=== PATIENT | female | born 1935 | race Caucasian/White ===

== ENCOUNTER 2016-08-20 11:41 | Outpatient (CLI) | payer MEDICARE, MEDICAID | END 2016-08-20 11:42 | disposition home or self-care (01) | DX: E05.90 Thyrotoxicosis, unspecified without thyrotoxic crisis or storm (principal); I10 Essential (primary) hypertension ==

== ENCOUNTER 2016-09-10 15:00 | Outpatient (CLI) | payer MEDICARE, MEDICAID | END 2016-09-10 15:01 | disposition home or self-care (01) | DX: L72.3 Sebaceous cyst (principal) ==

== ENCOUNTER 2017-02-17 11:20 | Outpatient (CLI) | payer MEDICARE, MEDICAID ==
--- NOTE | 2017-02-17 19:20 | XRAY Report ---
THREE VIEW BILATERAL KNEES: 02/17/2017 CLINICAL INDICATION: Pain. AP, lateral, sunrise views of the bilateral knees were obtained. RIGHT: There is mild osteoarthritis, with chondrocalcinosis. There is no evidence of fracture or di slocation. No effusion is seen. LEFT: There is a left total knee replacement in place. There is no evidence of acute fracture or eastman rdware complication. A moderate effusion is present. IMPRESSION: MILD RIGHT KNEE OSTEOARTHRITIS. LEFT KNEE REPLACEMENT, WITH A MODERATE EFFUSION. JOB #: [id number] EXT JOB #:[id number]
== END 2017-02-17 11:21 | disposition home or self-care (01) ==
LOC: DI.S 11:20
PROVIDERS: ATTEND Physician Assistant Medical
DX: M17.11 Unilateral primary osteoarthritis, right knee (principal); M25.462 Effusion, left knee; Z96.652 Presence of left artificial knee joint

== ENCOUNTER 2017-10-20 15:06 | Outpatient (CLI) | payer MEDICARE, MEDICAID ==
[2017-10-20 18:43] LABS: HB2 TOTAL 16.8 g/dL; HEMOGLOBIN A1C 0.68 g/dL; HEMOGLOBIN A1C % 5.9 % (4.6-6.2)
== END 2017-10-20 15:07 | disposition home or self-care (01) ==
LOC: LAB.F 15:06
PROVIDERS: ATTEND Physician Assistant Medical
DX: R73.01 Impaired fasting glucose (principal)
CPT/HCPCS: 36415; 83036

== ENCOUNTER 2017-10-22 10:25 | Outpatient (CLI) | payer MEDICARE, MEDICAID ==
[2017-10-22 17:30] LABS: BASOPHILS # (AUTO) 0.1 10^3/uL (0.0-0.1); BASOPHILS % (AUTO) 0.8 %; EOSINOPHILS # (AUTO) 0.1 10^3/uL (0.0-0.7); EOSINOPHILS % (AUTO) 1.4 %; HGB - HEMOGLOBIN 15.5 g/dL (12.0-16.0); LYMPHOCYTES % (AUTO) 15.8 %; MEAN CORPUSCULAR HEMOGLOBIN 28.2 pg (27.0-31.0); MEAN CORPUSCULAR HGB CONC 32.3 g/dL (32.0-36.0); MEAN CORPUSCULAR VOLUME 87.3 fL (81.0-99.0); MEAN PLATELET VOLUME 9.7 fL (7.9-10.8); MONOCYTES # (AUTO) 0.5 10^3/uL (0.0-1.0); MONOCYTES % (AUTO) 7.6 %; NEUTROPHILS # (AUTO) 4.7 10^3/uL (1.5-6.6); NEUTROPHILS % (AUTO) 74.4 %; PLT - PLATELET COUNT 165 10^3/uL (130-450); RED BLOOD COUNT 5.49 10^6/uL (4.20-5.40); RED CELL DISTRIBUTION WIDTH 13.7 % (12.0-15.0); WHITE BLOOD COUNT 6.3 x10^3/uL (4.8-10.8)
[2017-10-22 17:48] LABS: ALBUMIN 4.3 g/dL (3.2-5.5); ALBUMIN/GLOBULIN RATIO 1.8 (1.0-2.2); ALKALINE PHOSPHATASE 101 IU/L (42-121); ALT ALANINE AMINOTRANSFERASE 16 IU/L (10-60); AST ASPARTATE AMINOTRANSFERASE 22 IU/L (10-42); BILIRUBIN,TOTAL 1.7 mg/dL (0.2-1.0); BUN - BLOOD UREA NITROGEN 13 mg/dL (6-20); CARBON DIOXIDE - CO2 27 mmol/L (21-32); CHLORIDE 105 mmol/L (101-111); CREATININE 0.7 mg/dL (0.4-1.0); GFR - MDRD 81 (>89); GLUCOSE 123 mg/dL (70-100); SODIUM 141 mmol/L (135-145); TOTAL PROTEIN 6.7 g/dL (6.7-8.2)
== END 2017-10-22 10:26 | disposition home or self-care (01) ==
LOC: LAB.F 10:25
PROVIDERS: ATTEND Physician Assistant Medical
DX: I10 Essential (primary) hypertension (principal); E05.90 Thyrotoxicosis, unspecified without thyrotoxic crisis or storm
CPT/HCPCS: 36415; 80053; 84443; 84481; 85025

== ENCOUNTER 2017-12-11 08:00 | Outpatient (CLI) | payer MEDICARE, MEDICAID ==
--- NOTE | 2017-12-11 16:32 | Nuclear Medicine Report ---
EXAM: THYROID UPTAKE AND SCAN EXAM DATE: 12/11/2017 02:36 PM. CLINICAL HISTORY: ABN THYROID FUNCTION TEST. COMPARISON: None available. TECHNIQUE: Patient was administered 350 microcuries of I-123 orally and returned at 4 and 24 hours fo r thyroid uptake measurement. At 4 hours after radioiodine ingestion, anterior gamma camera images of the patient's neck were obtained from 3 standard angles. FINDINGS: Uptake: 4 Hour: 30.3% (Normal 4-18%). 24 Hour: 37.7% (Normal 8-32%). Thyroid Scan: Heterogeneous scintigraphic appearance without dominant hot or cold nodules. IMPRESSION: 1. Elevated 4 and 24-hour uptake. 2. Heterogeneous scintigraphic appearance, question nodular goiter. [facility] Referring Provider Line: [phone] SITE ID: [id number]
== END 2017-12-11 23:59 ==
LOC: DI 08:00
PROVIDERS: ATTEND Physician Assistant Medical
DX: R94.6 Abnormal results of thyroid function studies (principal)
CPT/HCPCS: 78014; A9509

== ENCOUNTER 2018-01-12 15:23 | Outpatient (CLI) | payer MEDICARE, MEDICAID ==
[2018-01-12 17:47] LABS: BASOPHILS % (AUTO) 0.7 %; EOSINOPHILS # (AUTO) 0.1 10^3/uL (0.0-0.7); EOSINOPHILS % (AUTO) 1.9 %; HGB - HEMOGLOBIN 15.4 g/dL (12.0-16.0); LYMPHOCYTES # (AUTO) 0.9 10^3/uL (1.5-3.5); LYMPHOCYTES % (AUTO) 13.9 %; MEAN CORPUSCULAR HEMOGLOBIN 28.4 pg (27.0-31.0); MEAN CORPUSCULAR VOLUME 85.9 fL (81.0-99.0); MEAN PLATELET VOLUME 9.5 fL (7.9-10.8); MONOCYTES # (AUTO) 0.4 10^3/uL (0.0-1.0); MONOCYTES % (AUTO) 6.6 %; NEUTROPHILS # (AUTO) 5.1 10^3/uL (1.5-6.6); NEUTROPHILS % (AUTO) 76.9 %; PLT - PLATELET COUNT 180 10^3/uL (130-450); RED BLOOD COUNT 5.44 10^6/uL (4.20-5.40); RED CELL DISTRIBUTION WIDTH 13.1 % (12.0-15.0); WHITE BLOOD COUNT 6.6 x10^3/uL (4.8-10.8)
[2018-01-12 18:22] LABS: THYROID STIMULATING HORMONE 0.52 uIU/mL (0.34-5.60)
[2018-01-12 18:24] LABS: FREE T4 (FREE THYROXINE) 0.88 ng/dL (0.58-1.64)
== END 2018-01-12 15:24 | disposition home or self-care (01) ==
LOC: LAB.F 15:23
PROVIDERS: ATTEND Physician Assistant Medical
DX: E05.90 Thyrotoxicosis, unspecified without thyrotoxic crisis or storm (principal); Z51.81 Encounter for therapeutic drug level monitoring; Z79.899 Other long term (current) drug therapy
CPT/HCPCS: 36415; 84439; 84443; 84481; 85025

== ENCOUNTER 2018-04-02 10:10 | Outpatient (CLI) | payer MEDICARE, MEDICAID ==
[2018-04-02 17:17] LABS: BASOPHILS # (AUTO) 0.1 10^3/uL (0.0-0.1); BASOPHILS % (AUTO) 0.9 %; EOSINOPHILS % (AUTO) 0.5 %; HGB - HEMOGLOBIN 16.3 g/dL (12.0-16.0); LYMPHOCYTES # (AUTO) 1.1 10^3/uL (1.5-3.5); MEAN CORPUSCULAR HEMOGLOBIN 29.3 pg (27.0-31.0); MEAN CORPUSCULAR VOLUME 88.8 fL (81.0-99.0); MONOCYTES # (AUTO) 0.8 10^3/uL (0.0-1.0); MONOCYTES % (AUTO) 8.6 %; NEUTROPHILS # (AUTO) 7.3 10^3/uL (1.5-6.6); PLT - PLATELET COUNT 190 10^3/uL (130-450); RED BLOOD COUNT 5.57 10^6/uL (4.20-5.40); RED CELL DISTRIBUTION WIDTH 13.5 % (12.0-15.0); WHITE BLOOD COUNT 9.4 x10^3/uL (4.8-10.8)
[2018-04-02 18:28] LABS: THYROID STIMULATING HORMONE 11.27 uIU/mL (0.34-5.60)
[2018-04-02 18:30] LABS: FREE T4 (FREE THYROXINE) 0.49 ng/dL (0.58-1.64)
[2018-04-02 18:35] LABS: TOTAL T3 0.86 ng/mL (0.87-1.78)
== END 2018-04-02 10:11 | disposition home or self-care (01) ==
LOC: LAB.F 10:10
PROVIDERS: ATTEND Physician Assistant Medical
DX: E05.90 Thyrotoxicosis, unspecified without thyrotoxic crisis or storm (principal)
CPT/HCPCS: 36415; 84439; 84443; 84480; 85025

== ENCOUNTER 2018-05-03 08:00 | Outpatient (CLI) | payer MEDICARE, MEDICAID ==
[2018-05-03 18:45] LABS: T4 (THYROXINE) 6.27 ug/dL (6.09-12.23)
[2018-05-03 18:51] LABS: THYROID STIMULATING HORMONE 1.11 uIU/mL (0.34-5.60)
[2018-05-03 18:52] LABS: FREE T4 (FREE THYROXINE) 0.65 ng/dL (0.58-1.64)
[2018-05-03 18:54] LABS: TOTAL T3 1.51 ng/mL (0.87-1.78)
== END 2018-05-03 08:01 | disposition home or self-care (01) ==
LOC: LAB.F 08:00
PROVIDERS: ATTEND Internal Medicine
DX: E05.90 Thyrotoxicosis, unspecified without thyrotoxic crisis or storm (principal)
CPT/HCPCS: 36415; 84436; 84439; 84443; 84480; 84481

== ENCOUNTER 2018-06-21 09:36 | Outpatient (CLI) | payer MEDICARE, MEDICAID ==
[2018-06-21 17:34] LABS: BASOPHILS % (AUTO) 0.4 %; EOSINOPHILS # (AUTO) 0.1 10^3/uL (0.0-0.7); EOSINOPHILS % (AUTO) 1.5 %; HGB - HEMOGLOBIN 15.6 g/dL (12.0-16.0); LYMPHOCYTES # (AUTO) 1.1 10^3/uL (1.5-3.5); MEAN CORPUSCULAR HEMOGLOBIN 29.5 pg (27.0-31.0); MEAN CORPUSCULAR HGB CONC 33.6 g/dL (32.0-36.0); MEAN CORPUSCULAR VOLUME 87.9 fL (81.0-99.0); MEAN PLATELET VOLUME 10.9 fL (7.9-10.8); MONOCYTES # (AUTO) 0.6 10^3/uL (0.0-1.0); MONOCYTES % (AUTO) 7.8 %; NEUTROPHILS # (AUTO) 5.7 10^3/uL (1.5-6.6); NEUTROPHILS % (AUTO) 75.3 %; PLT - PLATELET COUNT 197 10^3/uL (130-450); RED CELL DISTRIBUTION WIDTH 13.4 % (12.0-15.0); WHITE BLOOD COUNT 7.6 x10^3/uL (4.8-10.8)
[2018-06-21 17:49] LABS: ALBUMIN 4.2 g/dL (3.2-5.5); ALBUMIN/GLOBULIN RATIO 1.6 (1.0-2.2); BILIRUBIN,TOTAL 1.3 mg/dL (0.2-1.0); CALCIUM 9.3 mg/dL (8.5-10.3); CREATININE 0.5 mg/dL (0.4-1.0); TOTAL PROTEIN 6.8 g/dL (6.7-8.2)
== END 2018-06-21 09:37 | disposition home or self-care (01) ==
LOC: LAB.F 09:36
PROVIDERS: ATTEND Internal Medicine Gastroenterology
DX: I10 Essential (primary) hypertension (principal)
CPT/HCPCS: 36415; 80053; 85025

== ENCOUNTER 2018-06-27 12:46 | Emergency (ER) | payer MEDICARE, MEDICAID ==
--- NOTE | 2018-06-27 13:17 | ED Physician Documentation ---
PD HPI GI BLEED - Stated complaint Stated Complaint: ABD PX - Chief complaint Chief Complaint: Abd Pain - History obtained from History obtained from: Patient, Family - History of Present Illness Timing - onset: How many months ago (8) Timing - duration: Months (8) Timing - details: Gradual onset, Still present, Intermittant Pain level max: 0 Pain level now: 0 Associated symptoms: Constipation, Dizzy. No: Vomiting, Coffee ground emesis, Maroon stool, Black/tarry stool, Abdominal pain, Chest pain, Fever, Near syncope / syncope, Loss of appetite Contributing factors: No: Sick contact, Bad food, Travel, Recent antibiotics, Alcohol use, Aspirin use, NSAID use, Anticoagulated Improved by: Other (nothing) Worsened by: Other (Nothing) Recently seen: Clinic - Additional information Additional information: 82-year-old female with history of hypertension, thyroid disease, Parkinson movements (chronic dizziness), polyps removed in 2007 via colonoscopy here with complaint of rectal bleeding in the past 8 months. Patient stated had seen her GI doctor and primary doctor about this problem. She was scheduled to have a colonoscopy done by Dr. Dinero last February 13. However they found Her EKG Showed atrial fib of so this was put on hold. Patient denied being put on any anticoagulation. Patient stated the communication process broke down so her colonoscopy has not been scheduled until recently when she saw her GI doctor in June 16.Patient stated she is scheduled to have her colonoscopy 2-1/2 weeks from now.However she is here today with the hopes that the colonoscopy preparation can be done as an inpatient and the colonoscopy can be done in the hospital. Patient stated the past 2 months she is having mucus rectal bleeding every 30 minutes. Because of this she is feeling tired and wants to be admitted. Review of Systems Ten Systems: 10 systems reviewed and negative Constitutional: reports: Fatigue. denies: Fever Cardiac: denies: Chest pain / pressure Respiratory: denies: Dyspnea GI: reports: Constipation (Was constipated5 days ago and took milk of magnesia and drank a lot of prune juice. The following day she had diarrhea.), Diarrhea, Bloody / black stool. 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 08/04/14 - Allergies Allergies/Adverse Reactions: Allergies Allergy/AdvReac Type Severity Reaction Status Date / Time codeine Allergy Dizziness Verified 06/27/18 14:24 metronidazole [From Flagyl] Allergy Hives Unverified 06/27/18 14:24 Metronidazole HCl * Allergy Hives Unverified 06/27/18 14:24 [From Flagyl] Penicillins Allergy Hives Unverified 06/27/18 14:24 - Social History Does the pt smoke?: No Smoking Status: Never smoker PD ED PE NORMAL - Vitals Vital signs reviewed: Yes - General General: Alert and oriented X 3, No acute distress, Well developed/nourished - HEENT HEENT: EOMI, Moist mucous membranes - Neck Neck: Supple, no meningeal sign - Cardiac Cardiac: No murmur, Strong equal pulses, Other (Irregularly irregular. surveillance system monitor showed atrial fib) - Respiratory Respiratory: No respiratory distress, Clear bilaterally - Abdomen Abdomen: Normal bowel sounds, Soft, Non tender, Non distended - Rectal Rectal: Other (Chaperoned by RN. Rectal exam to small flat nontender hemo rrhoids at 6:00 area. Nontender rectal exam. Brownish mucus secretion acquired. Guaiac negative. No anal fissures noted.) - Back Back: No CVA TTP - Derm Derm: Normal color, Warm and dry - Extremities Extremities: No deformity - Neuro Neuro: Alert and oriented X 3 - Psych Psych: Normal mood, Normal affect Results - Vitals Vitals: Vital Signs - 24 hr 06/27/18 06/27/18 06/27/18 12:52 13:30 14:53 Temperature 36.6 C Heart Rate 90 79 81 Respiratory 20 17 16 Rate Blood Pressure 213/80 H 161/99 H 157/101 H O2 Saturation 100 98 100 Oxygen O2 Source Room air - Labs Labs: Laboratory Tests 06/27/18 06/27/18 06/27/18 13:15 13:25 14:21 WBC 7.3 RBC 5.25 Hgb 15.4 Hct 46.1 MCV 87.8 MCH 29.4 MCHC 33.5 RDW 13.6 Plt Count 176 MPV 9.3 Neut # (Auto) 5.7 Lymph # (Auto) 1.0 L [place] # (Auto) 0.5 Eos # (Auto) 0.1 Baso # (Auto) 0.1 Absolute Nucleated RBC 0.00 Nucleated RBC % 0.0 Sodium 140 Potassium 4.1 Chloride 106 Carbon Dioxide 29 Anion Gap 5.0 L BUN 11 Creatinine 0.7 Estimated GFR (MDRD) 81 L Glucose 105 H Lactic Acid 1.8 Calcium 9.0 Total Bilirubin 1.2 H AST 20 ALT 14 Alkaline Phosphatase 121 Total Protein 6.4 L Albumin 3.9 Globulin 2.5 Albumin/Globulin Ratio 1.6 Lipase 29 PD MEDICAL DECISION MAKING - ED course Complexity details: reviewed results (1530Patient daughter inform of CT scan results and pending general surgeon consult.), re-evaluated patient ( 1545 Patient denies any pain or rectal pain or increasing rectal bleeding. Patient's blood pressure improved after taking her regular dose of lisinopril. Patient informed of discussion with general surgeon for outpatient follow-up with her general surgeon Dr. Dinero. Patient stated she will call Dr. Dinero tomorrow for an appointment ZHENG. Patient does not appear to be in any distress nor toxic appearing.), considered differential (Chronic rectal bleeding, polyps, diverticulosis, Anemia), d/w patient (1400 Patient's blood pressure is elevated however patient told me she did not take her lisinopril this morning because she was hoping to get a colonoscopy this morning and hospital. We will give her lisinopril 20 mg we will also do a CT of the abdomen to determine what is causing patient's pain as reported by daughter and persistent rectal bleeding. Patient agreed to this test.), d/w family (1400 Inform daughter about test results. She is insisting that patient has abdominal pain. When I asked patient if she has abdominal pain she denies any. Abdominal exam was nontender.), d/w food consultant (1537 Case discussed with general surgeon on-call Dr. Rubio including CT scan result. He stated rectal prolapse and intussusception cannot require emergency surgery. He stated to have the patient call Dr. Dinero tomorrow for an appointment and reevaluation of her condition including colonoscopy patient can be discharge and be seen at the clinic tomorrow) Departure - Departure Disposition: 01 Home, Self Care Clinical Impression: Rectal prolapse, Intussusception of rectum, Rectal bleeding Condition: Stable Instructions: ED Prolapse Rectal Comments: Call your general surgeon Dr. Dinero tomorrow and get an appointment as soon as possible for reevaluation of your rectal prolapse or intussusception and rectal bleeding. Also discussed with him in terms of your want to get an earlier scheduled for your colonoscopy. If worse return to the emergency room.
[2018-06-27 13:24] LABS: BASOPHILS # (AUTO) 0.1 10^3/uL (0.0-0.1); BASOPHILS % (AUTO) 1.7 %; EOSINOPHILS # (AUTO) 0.1 10^3/uL (0.0-0.7); EOSINOPHILS % (AUTO) 1.1 %; HGB - HEMOGLOBIN 15.4 g/dL (12.0-16.0); LYMPHOCYTES % (AUTO) 13.4 %; MEAN CORPUSCULAR HEMOGLOBIN 29.4 pg (27.0-31.0); MEAN CORPUSCULAR HGB CONC 33.5 g/dL (32.0-36.0); MEAN CORPUSCULAR VOLUME 87.8 fL (81.0-99.0); MEAN PLATELET VOLUME 9.3 fL (7.9-10.8); MONOCYTES # (AUTO) 0.5 10^3/uL (0.0-1.0); MONOCYTES % (AUTO) 6.5 %; NEUTROPHILS # (AUTO) 5.7 10^3/uL (1.5-6.6); NEUTROPHILS % (AUTO) 77.3 %; PLT - PLATELET COUNT 176 10^3/uL (130-450); RED BLOOD COUNT 5.25 10^6/uL (4.20-5.40); RED CELL DISTRIBUTION WIDTH 13.6 % (12.0-15.0); WHITE BLOOD COUNT 7.3 x10^3/uL (4.8-10.8)
[2018-06-27 13:43] LABS: ALBUMIN 3.9 g/dL (3.2-5.5); ALBUMIN/GLOBULIN RATIO 1.6 (1.0-2.2); BILIRUBIN,TOTAL 1.2 mg/dL (0.2-1.0); CREATININE 0.7 mg/dL (0.4-1.0); TOTAL PROTEIN 6.4 g/dL (6.7-8.2)
[2018-06-27] MEDS ORDERED: IOPAMIDOL-300 100 ML VIAL ONE (14:17)
[2018-06-27] MEDS: LISINOPRIL 5 MG TABLET PO STA (14:54)
[2018-06-27] MEDS: FAMOTIDINE 20 MG/2 ML VIAL IVP STA (14:56)
[2018-06-27] MEDS: SODIUM CHLORIDE 0.9% 1,000 ML IV ONE (14:56)
[2018-06-27] MEDS: IOPAMIDOL-300 100 ML VIAL IVP ONE (14:58)
--- NOTE | 2018-06-27 15:17 | CT Report ---
Reason: pain, rectal bleeding Procedure Date: 06/27/2018 Accession Number: [id number] / [id number] Procedure: CT - Abdomen/Pelvis W/ CPT Code: FULL RESULT: EXAM: CT ABDOMEN AND PELVIS EXAM DATE: 06/27/2018 02:39 PM. CLINICAL HISTORY: Pain, rectal bleeding. COMPARISONS: XR ACUTE ABDOMEN SERIES 10/16/2007 11:56 AM. TECHNIQUE: Routine helical CT imaging was performed through the abdomen and pelvis. IV contrast: ISOVUE 300 100mL. Enteric contrast: No. Reconstructions: Coronal and sagittal. In accordance with CT protocol optimization, one or more of the following dose reduction techniques were utilized for this exam: automated exposure control, adjustment of mA and/or KV based on patient size, or use of iterative reconstructive technique. FINDINGS: Lung Bases: No consolidation or effusion. Tiny sliding hiatal hernia. The heart size is normal. No pericardial effusion. Elevation of the right hemidiaphragm. Liver: No significant abnormality. Gallbladder/Bile Ducts: The gallbladder is surgically absent. No biliary dilatation. Spleen: Normal. Pancreas: Atrophic. Otherwise no significant abnormality. Adrenal Glands: Normal. Kidneys: Probable punctate nonobstructing calculus in the inferior pole of the left kidney; no hydronephrosis. The right kidney demonstrates no significant abnormality. Peritoneal Cavity/Bowel: No ascites or pneumoperitoneum. No bowel obstruction or abnormal stool burden. No evidence of colitis. The rectum appears to be telescoping in on itself, best seen on the sagittal images. The rectum is also thickened to 4 cm diameter, and underlying mass lesion is not excluded. The appendix is well visualized and normal. Pelvic Organs: Status post hysterectomy. The urinary bladder is unremarkable. Vasculature: Mild atherosclerosis without aneurysm or other significant abnormality. Bones: Scoliosis and degenerative change. No acute osseous abnormality or aggressive osseous lesion. Other: None. IMPRESSION: Findings suggest rectal intussusception or prolapse, with underlying malignancy not excluded. [facility]
[2018-06-27 16:25] VITALS: BP 175/94
== END 2018-06-27 16:15 | disposition home or self-care (01) ==
LOC: ED 12:46
DX: K56.1 Intussusception (principal); K62.5 Hemorrhage of anus and rectum; K64.9 Unspecified hemorrhoids; I10 Essential (primary) hypertension; K62.3 Rectal prolapse
CPT/HCPCS: 36415; 74177; 80053; 83605; 83690; 85025; 96374; 99283; A9270; Q9967; 82274

== ENCOUNTER 2018-08-06 19:37 | Emergency (ER) | payer MEDICARE, MEDICAID ==
[2018-08-06 19:52] VITALS: BP 149/55
--- NOTE | 2018-08-06 20:10 | ED Physician Documentation ---
History of Present Illness - Stated complaint Stated Complaint: COLOSTOMY BAG ISSUES - Chief complaint Chief Complaint: General - History obtained from History obtained from: Patient - History of Present Illness Timing: Today Pain level max: 0 Pain level now: 0 - Additonal information Additional information: 82-year-old female had a colostomy bag placed at [facility] for colorectal cancer. Discharged today and was unsure how to change the bag. Came here for evaluation. No fevers. No redness. 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 08/04/14 - Allergies Allergies/Adverse Reactions: Allergies Allergy/AdvReac Type Severity Reaction Status Date / Time codeine Allergy Dizziness Verified 08/06/18 19:51 metronidazole [From Flagyl] Allergy Hives Verified 08/06/18 19:51 Metronidazole HCl * Allergy Hives Verified 08/06/18 19:51 [From Flagyl] Penicillins Allergy Hives Verified 08/06/18 19:51 - Social History Does the pt smoke?: No Smoking Status: Never smoker Does the pt drink ETOH?: No Does the pt have substance abuse?: No - Immunizations Immunizations are current?: Yes Immunizations: TDAP current <10years PD ED PE NORMAL - Vitals Vital signs reviewed: Yes - General General: Alert and oriented X 3, No acute distress - HEENT HEENT: Moist mucous membranes - Neck Neck: Supple, no meningeal sign - Abdomen Abdomen: Other (LLQ - Colostomy in place. No evidence of infection) - Derm Derm: Warm and dry - Neuro Neuro: Alert and oriented X 3 - Psych Psych: Normal mood, Normal affect Results - Vitals Vitals: Vital Signs - 24 hr 08/06/18 19:46 Temperature 36.4 C L Heart Rate 58 L Respiratory 18 Rate Blood Pressure 149/55 H O2 Saturation 95 Oxygen O2 Source Room air PD MEDICAL DECISION MAKING - ED course Complexity details: considered differential, d/w patient ED course: 82-year-old female with a new colostomy bag. This was changed. Instructions were given by the nurse at bedside to patient and her friend. Patient counseled regarding signs and symptoms for which I believe and urgent re-evaluation would be necessary. Patient with good understanding of and agreement to plan and is comfortable going home at this time This document was made in part using voice recognition software. While efforts are made to proofread this document, sound alike and grammatical errors may occur. Departure - Departure Disposition: 01 Home, Self Care Clinical Impression: Colostomy care Condition: Good Instructions: Colostomy Pouch Change, Colostomy Stoma Care Follow-Up: Lubna Michael PA-C [Primary Care Provider] - Within 1 week Comments: Return if you worsen. Follow-up with your doctor and surgeon as scheduled for further care.
== END 2018-08-06 20:50 | disposition home or self-care (01) ==
LOC: ED 19:37
DX: Z43.3 Encounter for attention to colostomy (principal); C18.9 Malignant neoplasm of colon, unspecified; I10 Essential (primary) hypertension
CPT/HCPCS: 99282

== ENCOUNTER 2018-10-30 09:01 | Outpatient (CLI) | payer MEDICARE, MEDICAID | END 2018-10-30 09:02 | disposition home or self-care (01) | LOC: DI 09:01 | PROVIDERS: ATTEND Nurse Practitioner Family | DX: I48.91 Unspecified atrial fibrillation (principal); I08.0 Rheumatic disorders of both mitral and aortic valves | CPT/HCPCS: 93306 ==

== ENCOUNTER 2019-12-22 13:00 | Outpatient (CLI) | payer MEDICARE, MEDICAID | END 2019-12-22 13:01 | disposition home or self-care (01) | LOC: COV 13:00 | PROVIDERS: ATTEND General Practice | DX: C19 Malignant neoplasm of rectosigmoid junction (principal) | CPT/HCPCS: 81599 ==

== ENCOUNTER 2020-06-14 14:49 | Outpatient (CLI) | payer MEDICARE, MEDICAID ==
[2020-06-14 20:10] LABS: BASOPHILS # (AUTO) 0.1 10^3/uL (0.0-0.1); BASOPHILS % (AUTO) 0.7 %; EOSINOPHILS # (AUTO) 0.2 10^3/uL (0.0-0.7); EOSINOPHILS % (AUTO) 2.3 %; HGB - HEMOGLOBIN 15.7 g/dL (12.0-16.0); LYMPHOCYTES # (AUTO) 1.5 10^3/uL (1.5-3.5); LYMPHOCYTES % (AUTO) 22.3 %; MEAN CORPUSCULAR HEMOGLOBIN 29.7 pg (27.0-31.0); MEAN CORPUSCULAR HGB CONC 32.4 g/dL (32.0-36.0); MEAN CORPUSCULAR VOLUME 91.7 fL (81.0-99.0); MEAN PLATELET VOLUME 11.7 fL (7.9-10.8); MONOCYTES # (AUTO) 0.5 10^3/uL (0.0-1.0); MONOCYTES % (AUTO) 7.9 %; NEUTROPHILS # (AUTO) 4.6 10^3/uL (1.5-6.6); NEUTROPHILS % (AUTO) 66.7 %; PLT - PLATELET COUNT 209 10^3/uL (130-450); RED BLOOD COUNT 5.29 10^6/uL (4.20-5.40); RED CELL DISTRIBUTION WIDTH 12.5 % (12.0-15.0); WHITE BLOOD COUNT 6.8 x10^3/uL (4.8-10.8)
[2020-06-14 20:22] LABS: ALBUMIN 4.1 g/dL (3.2-5.5); ALBUMIN/GLOBULIN RATIO 1.4 (1.0-2.2); CALCIUM 9.3 mg/dL (8.5-10.3); CREATININE 0.5 mg/dL (0.4-1.0)
== END 2020-06-14 14:50 | disposition home or self-care (01) ==
LOC: LAB.S 14:49
PROVIDERS: ATTEND Internal Medicine Hematology & Oncology
DX: D75.1 Secondary polycythemia (principal)
CPT/HCPCS: 36415; 80053; 83615; 85025

== ENCOUNTER 2020-12-24 08:00 | Outpatient (CLI) | payer MEDICARE, MEDICAID | END 2020-12-24 23:59 | disposition home or self-care (01) | LOC: COV 08:00 | PROVIDERS: ATTEND General Practice | DX: Z01.812 Encounter for preprocedural laboratory examination (principal); Z20.822 Contact with and (suspected) exposure to COVID-19 ==

== ENCOUNTER 2021-06-06 12:34 | Outpatient (CLI) | payer MEDICARE, MEDICAID ==
--- NOTE | 2021-06-06 17:55 | MRI Report ---
PROCEDURE: Cervical Spine W/O INDICATIONS: CERVICAL SPINE STENOSIS TECHNIQUE: Noncontrast sagittal T1 spin echo and T2 fast spin echo, sagittal STIR, foraminal oblique sagittal T2 fast spin echo, and axial gradient echo or T2 fast spin echo through the cervical spine. COMPARISON: None. FINDINGS: Image quality: Excellent. Alignment and Curvature: There is reversal of normal cervical curvature. There is trace anterolisthe sis of C2 on C3, C3 on C4, trace retrolisthesis of C5 on C6. Bone Marrow: Marrow demonstrates normal overall signal. Spinal Cord: Visualized spinal cord has normal signal. No cerebellar tonsillar herniation. Paraspinous Soft Tissues: No paravertebral masses. Prevertebral soft tissues are normal in thicknes s. Discs: Multilevel severe disc desiccation is present. C2-C3: Minimal disc bulge with effacement of the anterior thecal sac. Minimal right foraminal narrow ing with uncovertebral hypertrophy. C3-C4: Mild disc bulge with mild to moderate spinal stenosis. Moderate bilateral foraminal narrowin g with uncovertebral hypertrophy. C4-C5: Mild disc bulge with mild to moderate spinal stenosis. Moderate bilateral foraminal narrowing with uncovertebral hypertrophy. C5-C6: Mild disc bulge with moderate to severe spinal stenosis. Moderate bilateral foraminal narrowi ng, right greater than left with uncovertebral hypertrophy. C6-C7: Mild disc bulge with moderate to severe spinal stenosis. Moderate to severe right and moderat e left foraminal narrowing with uncovertebral hypertrophy. C7-T1: Mild disc bulge with mild to moderate spinal stenosis. [id number] left foraminal narrow ing with uncovertebral hypertrophy. IMPRESSION: 1. Multilevel degenerative changes. 2. Multilevel spinal stenosis most severe at C5-6 and C6-7 secondary to disc bulge as well as retroli sthesis. 3. Multilevel foraminal narrowing most severe at C6-7 secondary to uncovertebral arthropathy. Reviewed by: Yari Gagnon MD on 06/06/2021 5:54 PM PDT Approved by: Yari Gagnon MD on 06/06/2021 5:54 PM PDT Station ID: [id number]
== END 2021-06-06 12:35 | disposition home or self-care (01) ==
LOC: DI 12:34
PROVIDERS: ATTEND Psychiatry & Neurology Neurology
DX: M48.02 Spinal stenosis, cervical region (principal); M50.222 Other cervical disc displacement at C5-C6 level; M47.812 Spondylosis without myelopathy or radiculopathy, cervical region; R26.89 Other abnormalities of gait and mobility; R25.1 Tremor, unspecified

== ENCOUNTER 2022-04-14 13:13 | Emergency (ER) | payer MEDICARE, MEDICAID ==
--- NOTE | 2022-04-14 14:36 | ED Physician Documentation ---
PD HPI HEADACHE - Stated complaint Stated Complaint: HEADACHE - Chief complaint Chief Complaint: Neuro - History obtained from History obtained from: Patient - History of Present Illness Timing - onset: Yesterday Timing - onset during: Rest. No: Exertion Timing - duration: Hours (about 15-18 hours) Timing - details: Abrupt onset (onset with moderate severity, and it has continued into today worsening. Same location. No focal deficits. Normal vision.), Still present Worst headache ever?: Worst headache ever? Location: Right (temporal area) Quality: Stabbing Associated symptoms: No: Fever, Stiff neck, Nausea, Weakness, Numbness, Syncope, Vision changes Improved by: No: Rest, Meds (ibuprofen at home) Contributing factors: No: Anticoagulated, Hypertension, Recent illness, Trauma Similar symptoms before: Has not had sx before Recently seen: Not recently seen Review of Systems Constitutional: denies: Fever, Chills Eyes: denies: Decreased vision, Photophobia Nose: denies: Rhinorrhea / runny nose, Congestion Throat: denies: Sore throat Respiratory: denies: Cough GI: denies: Abdominal Pain Skin: denies: Rash, Lesions Neurologic: reports: Headache. 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 08/04/14 Tramadol HCl [Ultram] 50 mg PO Q6H PRN #12 tablet 04/14/22 - Allergies Allergies/Adverse Reactions: Allergies Allergy/AdvReac Type Severity Reaction Status Date / Time codeine Allergy Dizziness Verified 04/14/22 13:52 metronidazole [From Flagyl] Allergy Hives Verified 04/14/22 13:52 Metronidazole HCl * Allergy Hives Verified 04/14/22 13:52 [From Flagyl] Penicillins Allergy Hives Verified 04/14/22 13:52 - Social History Does the pt smoke?: No Smoking Status: Never smoker Does the pt drink ETOH?: No Does the pt have substance abuse?: No - Immunizations Immunizations are current?: Yes Immunizations: TDAP current <10years - POLST Patient has POLST: No PD ED PE NORMAL - Vitals Vital signs reviewed: Yes - General General: Alert and oriented X 3, No acute distress, Well developed/nourished - HEENT HEENT: Ears normal, Moist mucous membranes, Pharynx benign, Other (right hoahaoism area headache. Mild tender to touch the area.) - Neck Neck: Supple, no meningeal sign, No adenopathy, No bruit - Cardiac Cardiac: RRR, No murmur - Respiratory Respiratory: Clear bilaterally - Derm Derm: Normal color, Warm and dry - Neuro Neuro: Alert and oriented X 3, reinsurance clerk 2-12 intact, No motor deficit, No sensory deficit, Normal speech, Other Results - Vitals Vitals: Oxygen O2 Source Room air - Labs Labs: Laboratory Tests 04/14/22 04/14/22 04/14/22 15:08 15:08 15:08 WBC 8.5 RBC 5.81 H Hgb 16.8 H Hct 51.5 H MCV 88.6 MCH 28.9 MCHC 32.6 RDW 12.7 Plt Count 174 MPV 10.5 Neut # (Auto) 6.5 Lymph # (Auto) 1.3 L [place] # (Auto) 0.6 Eos # (Auto) 0.1 Baso # (Auto) 0.0 Absolute Nucleated RBC 0.00 Nucleated RBC % 0.0 ESR 2 Sodium 141 Potassium 3.5 Chloride 104 Carbon Dioxide 26 Anion Gap 11.0 BUN 20 Creatinine 0.6 Estimated GFR (MDRD) 95 Glucose 103 H Calcium 9.5 Total Bilirubin 1.1 H AST 21 ALT 15 Alkaline Phosphatase 105 C-Reactive Protein < 1.0 Total Protein 7.4 Albumin 4.4 Globulin 3.0 Albumin/Globulin Ratio 1.5 Lipase 37 SARS-CoV-2 (PCR) 04/14/22 15:15 WBC RBC Hgb Hct MCV MCH MCHC RDW Plt Count MPV Neut # (Auto) Lymph # (Auto) [place] # (Auto) Eos # (Auto) Baso # (Auto) Absolute Nucleated RBC Nucleated RBC % ESR Sodium Potassium Chloride Carbon Dioxide Anion Gap BUN Creatinine Estimated GFR (MDRD) Glucose Calcium Total Bilirubin AST ALT Alkaline Phosphatase C-Reactive Protein Total Protein Albumin Globulin Albumin/Globulin Ratio Lipase SARS-CoV-2 (PCR) NOT DETECTED - Rads (name of study) head CT Radiology: Prelim report reviewed, See rad report PD MEDICAL DECISION MAKING - ED course Complexity details: considered differential (new headache of moderate severity. CT scan without signs of tumor/mass/ICH. labs showing noraml CRP/ESR. Better with simple medications. ), d/w patient Departure - Departure Disposition: 01 Home, Self Care Clinical Impression: Right temporal headache Condition: Stable Record reviewed to determine appropriate education?: Yes Instructions: ED Cephalgia Unspecified Prescriptions: Tramadol HCl [Ultram] 50 mg PO Q6H PRN #12 tablet PRN Reason: Pain Comments: Your head CT scan does not show any acute abnormalities. Your white count part of the blood count is normal. Your hemoglobin and hematocrit is slightly above normal consistent with prior levels. Inflammatory markers of sed rate and CRP are normal so that would preclude things like arteritis or immune related causes. At this point presume more of a functional headache. At this point I would suggest mild anti-inflammatory such as naproxen or ibuprofen twice daily for the next several days. To that add Tylenol every 4-6 hours if needed for pain or tramadol every 6 hours if needed for worse pain. I transmitted your prescription to [facility] in [place]. I would anticipate improvement over the next couple of days. Return or follow- up with your primary if not improved well over the next few days or if other symptoms develop such as fever, upper respiratory symptoms, rash in the area, other concerns. Discharge Date/Time: 04/14/22 17:21
[2022-04-14] MEDS ORDERED: KETOROLAC 30 MG/ML VIAL IM STA (14:55)
[2022-04-14] MEDS ORDERED: HYDROcod/ACETAM 5/325 MG TABLET PO STA (14:55)
[2022-04-14 15:14] LABS: BASOPHILS % (AUTO) 0.5 %; EOSINOPHILS # (AUTO) 0.1 10^3/uL (0.0-0.7); EOSINOPHILS % (AUTO) 0.8 %; HCT - HEMATOCRIT 51.5 % (37.0-47.0); HGB - HEMOGLOBIN 16.8 g/dL (12.0-16.0); LYMPHOCYTES # (AUTO) 1.3 10^3/uL (1.5-3.5); LYMPHOCYTES % (AUTO) 15.5 %; MEAN CORPUSCULAR HEMOGLOBIN 28.9 pg (27.0-31.0); MEAN CORPUSCULAR HGB CONC 32.6 g/dL (32.0-36.0); MEAN CORPUSCULAR VOLUME 88.6 fL (81.0-99.0); MEAN PLATELET VOLUME 10.5 fL (7.9-10.8); MONOCYTES # (AUTO) 0.6 10^3/uL (0.0-1.0); MONOCYTES % (AUTO) 6.6 %; NEUTROPHILS # (AUTO) 6.5 10^3/uL (1.5-6.6); NEUTROPHILS % (AUTO) 76.2 %; PLT - PLATELET COUNT 174 10^3/uL (130-450); RED BLOOD COUNT 5.81 10^6/uL (4.20-5.40); RED CELL DISTRIBUTION WIDTH 12.7 % (12.0-15.0); WHITE BLOOD COUNT 8.5 x10^3/uL (4.8-10.8)
[2022-04-14 15:32] LABS: ALBUMIN 4.4 g/dL (3.2-5.5); ALBUMIN/GLOBULIN RATIO 1.5 (1.0-2.2); ALKALINE PHOSPHATASE 105 IU/L (42-121); ALT ALANINE AMINOTRANSFERASE 15 IU/L (10-60); AST ASPARTATE AMINOTRANSFERASE 21 IU/L (10-42); BILIRUBIN,TOTAL 1.1 mg/dL (0.2-1.0); BUN - BLOOD UREA NITROGEN 20 mg/dL (6-20); CALCIUM 9.5 mg/dL (8.5-10.3); CARBON DIOXIDE - CO2 26 mmol/L (21-32); CHLORIDE 104 mmol/L (101-111); CREATININE 0.6 mg/dL (0.4-1.0); CRP - C-REACTIVE PROTEIN < 1.0 mg/dL (0-1.0); GFR - MDRD 95 (>89); GLUCOSE 103 mg/dL (70-100); LIPASE 37 U/L (22-51); POTASSIUM 3.5 mmol/L (3.5-5.0); SODIUM 141 mmol/L (135-145); TOTAL PROTEIN 7.4 g/dL (6.7-8.2)
--- NOTE | 2022-04-14 15:44 | CT Report ---
PROCEDURE: HEAD WO INDICATIONS: right frontal headache onset yesterday TECHNIQUE: Noncontrast 4.5 mm thick angled axial sections acquired from the foramen magnum to the vertex. For r adiation dose reduction, the following was used: automated exposure control, adjustment of mA and/or kV according to patient size. COMPARISON: None. FINDINGS: Image quality: Excellent. CSF spaces: Basal cisterns are patent. No extra-axial fluid collections. Ventricles are symmetric in size and shape. Brain: No midline shift. No acute intracranial hemorrhage or mass effect. Scattered hypodensities a re seen in the subcortical and periventricular white matter, most commonly seen in setting of chronic microvascular ischemic changes. Bilateral basal ganglia calcifications are seen. There is cerebral a nd cerebellar parenchymal volume loss with resulting prominence of the ventricles and sulci. Skull and face: Calvarium and visualized facial bones are intact, without suspicious lesions. Sinuses: Visualized sinuses and mastoids are clear. IMPRESSION: 1.No acute intracranial abnormality. 2.Mild chronic microvascular ischemic changes. 3.Mild age-related cerebral volume loss. Reviewed by: Gautam Wagner MD on 04/14/2022 2:43 PM ISAÍAS Approved by: Gautam Wagner MD on 04/14/2022 2:43 PM ISAÍAS Station ID: [id number]
[2022-04-14 16:16] VITALS: BP 181/73
[2022-04-14] MEDS ORDERED: traMADol 50 MG TABLET PO STA (17:10)
== END 2022-04-14 17:21 | disposition home or self-care (01) ==
LOC: ED 13:13
DX: R51.9 Headache, unspecified (principal); Z20.822 Contact with and (suspected) exposure to COVID-19
CPT/HCPCS: 36415; 70450; 80053; 83690; 85025; 85651; 86140; 87635; 96372; 99282; 99284; A9270

== ENCOUNTER 2022-09-22 07:54 | Outpatient (CLI) | payer MEDICARE, MEDICAID ==
--- NOTE | 2022-09-22 14:11 | DEXA Report ---
PROCEDURE: Dexa Spine and/or Hip INDICATIONS: POST MENOPAUSAL TECHNIQUE: Dual energy x-ray absorptiometry (DXA) was performed on a ReferBright System. Regions measur ed are the AP Spine, femoral neck, and if needed forearm. COMPARISON: None. 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 Osteopenia of the lumbar spine. Elevated fracture risk . Patients with diagnosis of osteoporosis or osteopenia should have regular bone mineral density assess ment. For those eligible for Medicare, routine testing is allowed once every 2 years. Testing frequ ency can be increased for patients who have rapidly progressing disease or for those who are receivin g medical therapy to restore bone mass. Reviewed by: Rancho Callaway MD on 09/22/2022 2:10 PM PST Approved by: Rancho Callaway MD on 09/22/2022 2:10 PM PST Station ID: [id number]
== END 2022-09-22 07:55 | disposition home or self-care (01) ==
LOC: DI 07:54
PROVIDERS: ATTEND Physician Assistant
DX: M81.0 Age-related osteoporosis without current pathological fracture (principal); Z78.0 Asymptomatic menopausal state

== ENCOUNTER 2023-03-28 21:46 | Outpatient (CLI) | payer MEDICARE, MEDICAID | END 2023-03-28 23:59 | disposition EMS.NT | LOC: EMS 21:46 | DX: Z03.89 Encounter for observation for other suspected diseases and conditions ruled out (principal) ==

== ENCOUNTER 2023-04-09 09:00 | Emergency (ER) | payer MEDICARE, MEDICAID ==
--- OUTSIDE RECORDS SUMMARY | 2023-04-09 09:32 | EXTERNAL MEDICAL SUMMARY RPT | Continuity of Care Document ---
Author Name Unknown Address [address] [place] [address] Phone Organization [facility] Address [address] [place] [address] Phone Care Team Providers Care Agricultural Extension Specialist Name Role Phone Unavailable Unavailable Unavailable [place] Patient Registrar Ii, Neelam Unavailable Unavailable Medications date description facility 2023-04-06 00:00 furosemide [facility] 2023-04-06 00:00 amlodipine [facility] 2023-04-06 00:00 amlodipine [facility] 2023-04-06 00:00 furosemide [facility] 2023-04-06 00:00 amlodipine [facility] 2023-04-06 00:00 furosemide [facility] 2023-04-06 00:00 amlodipine [facility] 2023-04-06 00:00 furosemide [facility] Problems date description facility 2023-02-26 00:00 Dizziness [facility] 2023-02-26 00:00 Undiagnosed cardiac murmurs [facility] 2023-02-26 00:00 Heart murmur [facility] 2023-02-26 00:00 Cardiac murmur, unspecified [facility] 2023-02-26 00:00 Dizziness and giddiness [facility] 2023-03-25 11:27 Cardiac murmur, [facility] 2023-03-26 07:39 Cardiac murmur, unspecified [facility] Procedures date description facility 2023-02-26 00:00 Visit Code Hold [facility] [place] 2023-02-26 [facility] [place] Results/Labs test date facility value unit notes Social History date description facility 2023-02-26 00:00 Never smoker [facility] [place] Vital Signs date measurement value units 2023-02-26 00:00 BMI 25.37 kg/m2 2023-02-26 00:00 BP_diastolic 85 mmHg 2023-02-26 00:00 BP_systolic 157 mmHg 2023-02-26 00:00 heart_rate 88 /min 2023-02-26 00:00 height_metric 159.38 cm 2023-02-26 00:00 height_standard 62.75 in 2023-02-26 00:00 respiration_rate 17 /min 2023-02-26 00:00 temperature_metric 36.28 C 2023-02-26 00:00 temperature_standard 97.3 F 2023-02-26 00:00 weight_metric 64.23 kg 2023-02-26 00:00 weight_metric 64.36 kg 2023-02-26 00:00 weight_standard 141.6 lb 2023-02-26 00:00 weight_standard 141.89 lb
--- NOTE | 2023-04-09 10:22 | XRAY Report ---
PROCEDURE: Ribs w/PA Chest LT INDICATIONS: fall/pain TECHNIQUE: 3 views of the left ribs were acquired, along with a single view chest. COMPARISON: None. FINDINGS: Surgical changes and devices: None. Bones and chest wall: No fractures or dislocations. No suspicious bony lesions. Overlying soft tis sues appear unremarkable. Lungs and pleura: No pleural effusions or pneumothorax. Lungs appear clear. Mediastinum: Mediastinal contours appear normal. Heart size is normal. IMPRESSION: No visualized acute fracture or dislocation. However, occult injury cannot be excluded. Recommend sarah rt interval imaging follow-up in 7-10 days as clinically indicated for additional evaluation. Reviewed by: Yari Gagnon MD on 04/09/2023 10:21 AM PDT Approved by: Yari Gagnon MD on 04/09/2023 10:21 AM PDT Station ID: [id number]
[2023-04-09] MEDS ORDERED: LIDOCAINE PATCH 5% TOP STA (10:43)
--- NOTE | 2023-04-09 10:46 | ED Physician Documentation ---
History of Present Illness - Stated complaint Stated Complaint: GLF/RIB PX - Chief complaint Chief Complaint: General - History obtained from History obtained from: Patient - Additonal information Additional information: Patient is an 87-year-old female presenting for evaluation of left-sided chest pain that has been present since a slip and fall at home on the of this month. The patient states that she was going into her bathroom when she tripped and fell forward. She has been having left-sided chest pain since then that is worse with certain movements. She has leftover tramadol from a prior prescription that she has been using to help manage her pain. She thought her pain would get better by now but it has been persisting so she decided to come to the emergency department for evaluation. She denies hitting her head or having LOC. She does not take a blood thinner. She was unable to get an appointment with her primary care provider. 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 08/04/14 Tramadol HCl [Ultram] 50 mg PO Q6H PRN #12 tablet 04/14/22 Lidocaine Patch 5% [Lidoderm Patch] 1 patch TOP DAILY PRN #10 patch 04/09/23 traMADol [Ultram] 50 mg PO Q6H PRN #12 tablet 04/09/23 - Allergies Allergies/Adverse Reactions: Allergies Allergy/AdvReac Type Severity Reaction Status Date / Time codeine Allergy Dizziness Verified 04/14/22 13:52 metronidazole [From Flagyl] Allergy Hives Verified 04/14/22 13:52 Metronidazole HCl * Allergy Hives Verified 04/14/22 13:52 [From Flagyl] Penicillins Allergy Hives Verified 04/14/22 13:52 - Social History Does the pt smoke?: No Smoking Status: Never smoker Does the pt drink ETOH?: No Does the pt have substance abuse?: No - Immunizations Immunizations are current?: Yes Immunizations: TDAP current <10years - POLST Patient has POLST: No PD ED PE NORMAL - General General: Alert and oriented X 3, No acute distress, Well developed/nourished - HEENT HEENT: Atraumatic - Neck Neck: Supple, no meningeal sign, No bony TTP, C-Spine cleared by NEXUS criteria - Cardiac Cardiac: RRR, No murmur, Other (Left-sided chest wall tenderness with no visible bruising, no flail, symmetric chest rise) - Respiratory Respiratory: No respiratory distress, Clear bilaterally - Abdomen Abdomen: Soft, Non tender - Derm Derm: Warm and dry - Neuro Neuro: Alert and oriented X 3, No motor deficit, Normal speech Results - Vitals Vitals: Vital Signs - 24 hr 04/09/23 04/09/23 09:12 10:59 Temperature 36.5 C 36.2 C L Heart Rate 85 74 Respiratory 20 18 Rate Blood Pressure 171/78 H 166/63 H O2 Saturation 98 96 Oxygen O2 Source Room air PD Medical Decision Making - ED course Complexity details: reviewed results, re-evaluated patient, d/w patient ED course: Patient is an 87-year-old presenting for evaluation of left-sided chest wall pain after a fall at home. No head injury. Fall was 2 weeks ago. Not on thinners. Chest x-ray which I reviewed is negative for signs of pneumothorax. Also no rib fractures noted. Patient has been using tramadol for pain relief. Patient counseled on continued supportive care as well as close follow-up with her primary care provider. She is advised on concerning symptoms to return for. Departure - Departure Disposition: 01 Home, Self Care Clinical Impression: Left-sided chest wall pain, Fall at home Condition: Stable Instructions: ED Contusion Chest Wall Prescriptions: Lidocaine Patch 5% [Lidoderm Patch] 1 patch TOP DAILY PRN #10 patch PRN Reason: pain traMADol [Ultram] 50 mg PO Q6H PRN #12 tablet PRN Reason: Pain 5-7 Comments: Your x-ray does not show a broken rib or a collapsed lung. Please continue with pain medication as needed and close follow-up with your primary care provider. I have sent prescriptions for tramadol and lidocaine patches to [facility] in [place]. I am prescribing a short course of narcotic pain medication for you. These are potentially dangerous and addictive medications that should be used carefully. These medications may constipate you. Take an euuf-ajr-vzjdyjc stool softener ( docusate) twice daily with plenty of water while taking these medications. If you go 24 hours without a bowel movement, take swpk-zne-oddvein miralax, per package instructions. Do not drink or drive while taking these medications. If you received narcotic or sedating medications while in the emergency department, do not drive for 24 hours. Store this medication in a safe, secure place and out of reach of children. It is a violation of federal law to give or sell this medication to another person or to use in a manner other than prescribed. The ED will not refill narcotic prescriptions, including prescriptions lost or stolen. To dispose of unwanted medications: 1. [facility] at [address] in [place] has a medication drop box. They accept prescription medications (in pill form) Thursday through Thursday 9:00 a.m. to 5:00 p.m. 2. [facility] accepts prescription medications (in pill form only) for disposal year round. Call for more information. 3. Contact the [facility] for the next [facility] sponsored prescription drug collection event. , x0070, or x2373; Note that many narcotic pain relievers also contain Tylenol/acetaminophen. Please ensure that your total dose of acetaminophen from all sources does not exceed 3 g (3000 mg) per day. Forms: PCP List Discharge Date/Time: 04/09/23 10:59
[2023-04-09 11:05] VITALS: BP 166/63; O2SAT 96
== END 2023-04-09 10:59 | disposition home or self-care (01) ==
LOC: ED 09:00
DX: R07.89 Other chest pain (principal); W18.30XA Fall on same level, unspecified, initial encounter; Y92.009 Unspecified place in unspecified non-institutional (private) residence as the place of occurrence of the external cause; I10 Essential (primary) hypertension
CPT/HCPCS: 71101; 99283; A9270

== ENCOUNTER 2023-04-30 07:42 | Outpatient (CLI) | payer MEDICARE, MEDICAID ==
[2023-04-30 14:35] LABS: BASOPHILS # (AUTO) 0.1 10^3/uL (0.0-0.1); BASOPHILS % (AUTO) 0.8 %; EOSINOPHILS # (AUTO) 0.1 10^3/uL (0.0-0.7); EOSINOPHILS % (AUTO) 2.1 %; HCT - HEMATOCRIT 52.1 % (37.0-47.0); HGB - HEMOGLOBIN 16.6 g/dL (12.0-16.0); LYMPHOCYTES # (AUTO) 1.4 10^3/uL (1.5-3.5); LYMPHOCYTES % (AUTO) 22.6 %; MEAN CORPUSCULAR HEMOGLOBIN 29.6 pg (27.0-31.0); MEAN CORPUSCULAR HGB CONC 31.9 g/dL (32.0-36.0); MEAN CORPUSCULAR VOLUME 92.9 fL (81.0-99.0); MEAN PLATELET VOLUME 12.3 fL (7.9-10.8); MONOCYTES # (AUTO) 0.5 10^3/uL (0.0-1.0); MONOCYTES % (AUTO) 8.4 %; NEUTROPHILS % (AUTO) 65.9 %; PLT - PLATELET COUNT 178 10^3/uL (130-450); RED BLOOD COUNT 5.61 10^6/uL (4.20-5.40); RED CELL DISTRIBUTION WIDTH 12.8 % (12.0-15.0); WHITE BLOOD COUNT 6.1 x10^3/uL (4.8-10.8)
[2023-04-30 14:52] LABS: PLATELET ESTIMATE, MANUAL NORMAL (130-450,000) (NORMAL); PLATELET MORPHOLOGY NORMAL APPEARANCE (NORMAL); RBC MORPHOLOGY (MULTIPLE) NORMAL APPEARANCE (NORMAL); SLIDE REVIEW? Indicated
[2023-04-30 14:56] LABS: THYROID STIMULATING HORMONE 0.84 uIU/mL (0.34-5.60)
[2023-04-30 15:22] LABS: ALBUMIN 4.2 g/dL (3.2-5.5)
[2023-04-30 15:23] LABS: ALBUMIN/GLOBULIN RATIO 1.4 (1.0-2.2); CALCIUM 9.6 mg/dL (8.5-10.3); CREATININE 0.6 mg/dL (0.6-1.3); POTASSIUM 4.2 mmol/L (3.5-4.5); TOTAL PROTEIN 7.1 g/dL (6.4-8.9)
[2023-04-30 15:40] LABS: ESTIMATED AVERAGE GLUCOSE 114 mg/dL (70-100); HEMOGLOBIN A1c% 5.6 % (4.27-6.07)
== END 2023-04-30 07:43 | disposition home or self-care (01) ==
LOC: LAB.S 07:42
PROVIDERS: ATTEND Physician Assistant Medical
DX: E05.90 Thyrotoxicosis, unspecified without thyrotoxic crisis or storm (principal); R42 Dizziness and giddiness
CPT/HCPCS: 36415; 80053; 83036; 83880; 84443; 85025

== ENCOUNTER 2023-05-12 08:00 | Outpatient (CLI) | payer MEDICARE, MEDICAID | END 2023-05-12 23:59 | disposition home or self-care (01) | LOC: LAB.S 08:00 | PROVIDERS: ATTEND Emergency Medicine | DX: J34.89 Other specified disorders of nose and nasal sinuses (principal); Z20.822 Contact with and (suspected) exposure to COVID-19 ==

== ENCOUNTER 2023-05-12 10:36 | Outpatient (CLI) | payer MEDICARE, MEDICAID ==
--- NOTE | 2023-05-12 11:15 | XRAY Report ---
PROCEDURE: Knee 3 View RT INDICATIONS: RIGHT KNEE PAIN TECHNIQUE: 3 views of the right knee(s) were acquired. COMPARISON: X-ray knee bilateral, 02/17/2023. FINDINGS: Bones: No fractures or dislocations. No suspicious bony lesions. Pabpxbtl-lr-zcdjzm osteoarthritic changes. Prmlipmu-hv-diqpjg joint space narrowing in the lateral femorotibial compartment. Chondroca lcinosis. Soft tissues: Moderate knee joint effusion. No suspicious soft tissue calcifications or masses. IMPRESSION: 1. Cbvyxzzs-js-ilzsar osteoarthritis. 2. Chondrocalcinosis. Comment etiologies include hyperparathyroidism and CPPD. 3. Moderate knee joint effusion. Reviewed by: Kylee Sandhu MD on 05/12/2023 11:14 AM PDT Approved by: Kylee Sandhu MD on 05/12/2023 11:14 AM PDT Station ID: [id number]
== END 2023-05-12 23:59 | disposition home or self-care (01) ==
LOC: DI.S 10:36
PROVIDERS: ATTEND Emergency Medicine
DX: M17.11 Unilateral primary osteoarthritis, right knee (principal); M11.261 Other chondrocalcinosis, right knee; M25.461 Effusion, right knee

== ENCOUNTER 2023-07-23 07:00 | Outpatient (CLI) | payer MEDICARE, MEDICAID ==
--- NOTE | 2023-07-23 14:22 | XRAY Report ---
PROCEDURE: Chest 2 View X-Ray INDICATIONS: SHORTNESS OF BREATH TECHNIQUE: 2 views of the chest were acquired. COMPARISON: None. FINDINGS: Surgical changes and devices: None. Lungs and pleura: No pleural effusions or pneumothorax. Lungs are clear. Mediastinum: Mediastinal contours appear normal. Heart size is normal. Bones and chest wall: No suspicious bony lesions. Overlying soft tissues appear unremarkable. IMPRESSION: No acute process. Reviewed by: Calin Beckford MD on 07/23/2023 2:21 PM PST Approved by: Calin Beckford MD on 07/23/2023 2:21 PM [facility] Station ID: [id number]
[2023-07-23 15:19] LABS: BASOPHILS # (AUTO) 0.1 10^3/uL (0.0-0.1); BASOPHILS % (AUTO) 1.1 %; EOSINOPHILS # (AUTO) 0.2 10^3/uL (0.0-0.7); EOSINOPHILS % (AUTO) 2.3 %; HCT - HEMATOCRIT 51.7 % (37.0-47.0); HGB - HEMOGLOBIN 16.2 g/dL (12.0-16.0); LYMPHOCYTES # (AUTO) 1.8 10^3/uL (1.5-3.5); LYMPHOCYTES % (AUTO) 23.7 %; MEAN CORPUSCULAR HEMOGLOBIN 29.1 pg (27.0-31.0); MEAN CORPUSCULAR HGB CONC 31.3 g/dL (32.0-36.0); MEAN PLATELET VOLUME 11.2 fL (7.9-10.8); MONOCYTES # (AUTO) 0.7 10^3/uL (0.0-1.0); MONOCYTES % (AUTO) 9.1 %; NEUTROPHILS # (AUTO) 4.8 10^3/uL (1.5-6.6); NEUTROPHILS % (AUTO) 63.5 %; PLT - PLATELET COUNT 184 10^3/uL (130-450); RED BLOOD COUNT 5.56 10^6/uL (4.20-5.40); RED CELL DISTRIBUTION WIDTH 12.9 % (12.0-15.0); WHITE BLOOD COUNT 7.6 x10^3/uL (4.8-10.8)
[2023-07-23 15:42] LABS: ALBUMIN 4.4 g/dL (3.2-5.5); ALBUMIN/GLOBULIN RATIO 1.6 (1.0-2.2); BILIRUBIN,TOTAL 0.8 mg/dL (0.2-1.0); CALCIUM 10.2 mg/dL (8.5-10.3); CREATININE 0.7 mg/dL (0.6-1.3); POTASSIUM 3.8 mmol/L (3.5-4.5); THYROID STIMULATING HORMONE 0.88 uIU/mL (0.34-5.60); TOTAL PROTEIN 7.1 g/dL (6.4-8.9)
== END 2023-07-23 23:59 | disposition home or self-care (01) ==
LOC: DI.S 07:00
PROVIDERS: ATTEND Physician Assistant Medical
DX: R06.02 Shortness of breath (principal); R42 Dizziness and giddiness; R01.1 Cardiac murmur, unspecified
CPT/HCPCS: 36415; 80053; 83880; 84443; 85025

== ENCOUNTER 2023-08-06 07:00 | Outpatient (CLI) | payer MEDICARE, MEDICAID ==
--- NOTE | 2023-08-06 16:10 | XRAY Report ---
PROCEDURE: Knee 3V LT INDICATIONS: LEFT KNEE PAIN TECHNIQUE: 3 views of the knee(s) were acquired. COMPARISON: None. FINDINGS: Bones: Decreased mineralization. Left knee arthroplasty components are in position. The joint is con gruent. There are no fractures or suspicious bone lesions. Soft tissues: Very small knee joint effusion. Mild peripheral vascular calcification. No suspicious soft tissue calcifications or masses. IMPRESSION: 1. Intact knee arthroplasty. 2. No acute bony abnormality. 3. Very small knee joint effusion. Reviewed by: Delphine Christiansen MD on 08/06/2023 4:08 PM PST Approved by: Delphine Christiansen MD on 08/06/2023 4:08 PM PST Station ID: [id number]
== END 2023-08-06 23:59 | disposition home or self-care (01) ==
LOC: DI.S 07:00
PROVIDERS: ATTEND Physician Assistant Medical
DX: M25.562 Pain in left knee (principal); Z96.652 Presence of left artificial knee joint; M25.462 Effusion, left knee

== ENCOUNTER 2023-09-30 12:17 | Outpatient (CLI) | payer MEDICARE, MEDICAID ==
--- NOTE | 2023-09-30 18:04 | Ultrasound Report ---
PROCEDURE: Carotid Doppler Complete INDICATIONS: DIZZINESS TECHNIQUE: Color and pulse Doppler interrogation was performed of both carotid systems, with image documentation and velocity measurements. COMPARISON: Carotid duplex on April 13, 2013. FINDINGS: Right side: Brachial blood pressure: 141 mm Hg. Common carotid artery peak systolic velocity: 53 cm/sec. Internal carotid artery peak systolic velocity: 57 cm/sec. Internal carotid artery end diastolic velocity: Milo cm/sec. External carotid artery peak systolic velocity: 72 cm/sec. ICA/CCA peak systolic ratio: 1.1 . Feliciano scale imaging description: Mild atherosclerotic plaque. Percent internal carotid artery stenosis: Less than 50 percent stenosis. Vertebral artery: Flow direction is antegrade. Left side: Brachial blood pressure: 147 mm Hg. Common carotid artery peak systolic velocity: 61 cm/sec. Internal carotid artery peak systolic velocity: 69 cm/sec. Internal carotid artery end diastolic velocity: 16 cm/sec. External carotid artery peak systolic velocity: 70 cm/sec. ICA/CCA peak systolic ratio: 1.1 . Feliciano scale imaging description: Mild atherosclerotic plaque. Percent internal carotid artery stenosis: Less than 50 percent stenosis. Vertebral artery: Flow direction is antegrade. IMPRESSION: 1. In the right internal carotid artery, there is less than 50 percent stenosis based on peak systoli c velocity criteria. 2. In the left internal carotid artery, there is less than 50 percent stenosis based on peak systolic velocity criteria. 3. Antegrade blood flow within the right vertebral artery. 4. Antegrade blood flow within the left vertebral artery. The estimate of stenosis included in the report of the imaging study was calculated using the [facility]-end orsed standards of carotid artery stenosis. Reviewed by: Mau Bliss MD on 09/30/2023 6:03 PM PST Approved by: Mau Bliss MD on 09/30/2023 6:03 PM PST Station ID: [id number]
== END 2023-09-30 12:18 | disposition home or self-care (01) ==
LOC: DI 12:17
PROVIDERS: ATTEND Physician Assistant Medical
DX: R42 Dizziness and giddiness (principal); I65.23 Occlusion and stenosis of bilateral carotid arteries
CPT/HCPCS: 93880

== ENCOUNTER 2023-12-03 10:28 | Outpatient (CLI) | payer MEDICARE, MEDICAID ==
[2023-12-03 14:17] LABS: BASOPHILS # (AUTO) 0.1 10^3/uL (0.0-0.1); BASOPHILS % (AUTO) 0.8 %; EOSINOPHILS # (AUTO) 0.2 10^3/uL (0.0-0.7); EOSINOPHILS % (AUTO) 2.6 %; HCT - HEMATOCRIT 48.6 % (37.0-47.0); HGB - HEMOGLOBIN 14.9 g/dL (12.0-16.0); LYMPHOCYTES # (AUTO) 1.1 10^3/uL (1.5-3.5); LYMPHOCYTES % (AUTO) 17.3 %; MEAN CORPUSCULAR HEMOGLOBIN 29.2 pg (27.0-31.0); MEAN CORPUSCULAR HGB CONC 30.7 g/dL (32.0-36.0); MEAN CORPUSCULAR VOLUME 95.1 fL (81.0-99.0); MEAN PLATELET VOLUME 11.1 fL (7.9-10.8); MONOCYTES # (AUTO) 0.5 10^3/uL (0.0-1.0); MONOCYTES % (AUTO) 7.6 %; NEUTROPHILS # (AUTO) 4.7 10^3/uL (1.5-6.6); NEUTROPHILS % (AUTO) 71.4 %; PLT - PLATELET COUNT 175 10^3/uL (130-450); RED BLOOD COUNT 5.11 10^6/uL (4.20-5.40); RED CELL DISTRIBUTION WIDTH 12.8 % (12.0-15.0); WHITE BLOOD COUNT 6.6 x10^3/uL (4.8-10.8)
[2023-12-03 14:37] LABS: ALBUMIN/GLOBULIN RATIO 1.7 (1.0-2.2); BILIRUBIN,TOTAL 0.8 mg/dL (0.2-1.0); CALCIUM 9.4 mg/dL (8.5-10.3); CREATININE 0.5 mg/dL (0.6-1.3); MAGNESIUM 2.1 mg/dL (1.7-2.3); POTASSIUM 3.7 mmol/L (3.5-4.5); TOTAL PROTEIN 6.4 g/dL (6.4-8.9)
[2023-12-03 15:20] LABS: THYROID STIMULATING HORMONE 0.07 uIU/mL (0.34-5.60)
== END 2023-12-03 10:29 | disposition home or self-care (01) ==
LOC: LAB.S 10:28
PROVIDERS: ATTEND Registered Nurse
DX: M62.81 Muscle weakness (generalized) (principal); R53.83 Other fatigue
CPT/HCPCS: 36415; 80053; 83735; 84439; 84443; 85025

== ENCOUNTER 2023-12-18 08:44 | Outpatient (CLI) | payer MEDICARE, MEDICAID ==
[2023-12-18 15:35] LABS: THYROID STIMULATING HORMONE 0.13 uIU/mL (0.34-5.60)
[2023-12-18 21:30] LABS: ESTIMATED AVERAGE GLUCOSE 117 mg/dL (70-100); HEMOGLOBIN A1c% 5.7 % (4.27-6.07)
== END 2023-12-18 08:45 | disposition home or self-care (01) ==
LOC: LAB.S 08:44
PROVIDERS: ATTEND Physician Assistant Medical
DX: R53.1 Weakness (principal); R53.83 Other fatigue
CPT/HCPCS: 36415; 82607; 83036; 84436; 84439; 84443; 84481; 86800